=== PATIENT | female | born 1995 | race Caucasian/White ===

== ENCOUNTER 2019-06-01 07:25 | Day surgery (SDC) | payer MEDICAID, SELFPAY ==
--- NOTE | 2019-05-31 09:00 | POC_PTH ---
PATIENT: COBY POWERS LOC: [facility] – [place] U#:[id number] AGE/SX: 23/F ROOM: RE06/01/[address]: Dr. Jessica Pierson MD : 1995 BED: DIS: 06/01/2019 SPEC #: [id number] RECD: 06/01/19 10:56 STATUS: REGAN RESarahy #: [id number] KAY: 05/31/19 09:[address]: Jessica Pierson DEPT: SURGICAL PATHOLOGY RECD BY: Brad Pinedo ENTERED: 06/01/19 11:04 SP TYPE: PROD CONC OTHR DR: No Primary Care Phys Tissues: Product of conception, NOS Procedures: Surgery Specimen Level IV HEADER OPERATION: Suction dilation and curettage PRE-OP DIAGNOSIS: Missed TISSUE SUBMITTED: Products of conception (eight weeks twin gestation) MICROSCOPIC DIAGNOSIS Endometrium, curettage: Chorionic villi, decidualized stroma and trophoblastic cells consistent with products of conception. AM:genaro 06/04/19 MICROSCOPIC DESCRIPTION Slides are reviewed. GROSS DESCRIPTION Received in fixative is one container labeled with the patient's name and designated products of conception. The specimen consists of multiple pieces of pink-mercado soft tissue that in aggregate measure 7?x 7 x 2 cm. No tissue is identified. Cardiovascular Invasive Specialist tissue is submitted in two cassettes. / SJ:genaro 06/01/19 TC:5 CPT: 24285
[2019-06-01 08:12] VITALS: BP 127/70; PULSE 99; RESP 16; TEMP 37.4; O2SAT 100; BMI 34.4
[2019-06-01 08:28] LABS: Hematocrit 40.3 % (37-47); Hemoglobin 13.4 g/dL (12.0-15.0); Mean Corp Hgb Conc 33.3 g/dL (32-36); Mean Corpuscular Hgb 26.4 pg (27.0-32.0); Mean Corpuscular Volume 79.5 fL (81-99); Mean Platelet Vol. 9.8 fl (6.2-12.0); Platelet Count 248 K/mm3 (150-450); RBC Distribution Width SD 36.6 fl (35.1-43.9); Red Blood Count 5.07 M/mm3 (4.2-5.4); White Blood Count 9.5 K/mm3 (4.4-11.0)
[2019-06-01] MEDS: Ketorolac 30 MG/ML Syringe IV (08:32)
[2019-06-01] MEDS: Doxycycline 100 MG CAPSULE PO (08:32)
--- NOTE | 2019-06-01 08:46 | PCM.HP.BLA ---
History and Physical Date of Admission: 06/01/19 22-year-old 2 para 1 at 8 weeks and 4 days by last menstrual period presents for suction dilation and curettage due to missed of twin gestation. [place]-rump length yesterday in the office were both consistent with 8-9 week size embryos. cardiac activity was not able to be visualized nor detected with Doppler color flow. Patient had no vaginal bleeding, leaking of fluid. She's had some nausea and vomiting of . The was planned. Past medical history significant for depression, gestational diabetes and gestational hypertension with previous . Past surgical history significant for section and a heart catheterization Social history: She denies any drug, tobacco or alcohol use First was a , failed induction. Current is first trimester missed twin . Appears dichorionic amniotic diamniotic. 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 Vagina shows normal physiological discharge. Cervix is closed, smooth, nonfriable. Transvaginal ultrasound was performed which revealed to gestational sacs, 2 yolk sacs, and 2 embryos that were 8-9 weeks' size without cardiac activity. assessment and plan: 8 week 4 day dichorionic diamniotic twin gestation missed . Risks benefits and alternatives to various options were discussed with patient, her questions were answered her satisfaction she desires to proceed with a suction dilation and curettage. Consent was signed.
--- NOTE | 2019-06-01 10:11 | OP.PCM_ITS ---
Report of Operation Date of Procedure: 06/01/19 Pre-Operative Diagnosis: 8-week missed , dichorionic diamniotic twin gestation Post-Operative Diagnosis: Same Surgery/Procedure Performed:: Suction dilation and curettage Description of Surgical Findings:: Normal-appearing cervix and vagina. elastic assembler: None Type of Anesthesia:: MAC/Supplemental/Local Anesthesiologist: Walt Chapman Special Medications: None Specimen's removed: POCs Drains: None Estimated Blood Loss (mL): 20 Fluids Replaced: 700 Description of Procedure: The patient was taken to the operating room where she was prepped and draped in a dorsolithotomy position. A bimanual examination was done and confirmed the uterus to be 10 weeks size and position. A weighted speculum was placed in the vagina and the anterior lip of the cervix was grasped with a single-tooth tenaculum. The cervix was dilated serially. A 8 mm suction curette was placed to the uterine fundus and the suction was created. Several passes were made to remove clots and products of conception. When minimal tissue was returning a gentle sharp curettage was then done of the uterine cavity. The uterine cry was appreciated and another gentle pass was made with the suction curette. At this point there is no active bleeding from the uterus and minimal blood and no further products of conception were removed. The instruments removed from the cervix and the cervix was observed and no active bleeding was identified. The tenaculum was removed off the cervix and hemostasis of the tenaculum site was assured. Made of the instruments removed from the vagina and the vaginal sweep was completed by me. Sponge and needle counts were correct. The patient was taken to the recovery room in stable condition. Findings: 10 week size uterus, normal cervix and vagina. Specimen: Products of conception Grafts/Implants Used: none - Complications none - Admit VTE Documentation VTE Present on Admission: No VTE Mechan Device Prophylaxis: SCD's VTE Pharm Prophylaxis ordered?: No Reason prophylaxis not ordered:: Procedure Not Indicated
--- NOTE | 2019-06-01 10:11 | DCINST_ITS ---
Discharge Diet: No Restrictions Discharge Activity: Return to Normal Activity, May Shower, May Take a Tub Bath - in 2 weeks. May resume sexual activity in: 2 weeks Call your doctor if your incision/area has: Sudden Increased Bleeding, Foul Smelling Discharge Call your doctor if you observe: Fever of 101 or Higher, Inability to urinate, Inability to have a bowel movement, Using more than one pad per hour Allergies/Adverse Reactions: Allergies bee venom protein (honey bee) Allergy (Verified 06/01/19 08:07) Hives Medications to take at Discharge Vits [Prenatabs FA] 1 tablet PO DAILY 08/31/17 Naproxen [Naprosyn] 500 mg PO Q8 PRN 06/01/19 Primary Care Physician: Care Physician,No Primary [Primary Care Provider] - Test Results: Test results from this visit will be discussed in further detail at your follow- up appointment, if applicable. Please Follow Up With: Jessica Pierson MD - [phone] When: 3-4 weeks or as needed
[2019-06-01 10:15] VITALS: BP 103/51; BP 127/70; PULSE 92; RESP 16; TEMP 36.2; O2SAT 99
[2019-06-01 10:20] VITALS: BP 103/68; BP 127/70; PULSE 91; RESP 16; O2SAT 100
[2019-06-01 10:25] VITALS: BP 103/52; BP 127/70; PULSE 88; RESP 16; O2SAT 100
[2019-06-01 10:32] VITALS: BP 127/70; BP 92/75; PULSE 84; RESP 16; TEMP 36.2; O2SAT 100
[2019-06-01 11:44] VITALS: BP 108/71; BP 127/70; PULSE 93; RESP 18; TEMP 36.4; O2SAT 100
== END 2019-06-01 11:49 | disposition home or self-care (01) ==
LOC: SDC 07:30 → AC 07:30
PROVIDERS: Referring Provider Obstetrics & Gynecology; Visit Provider Obstetrics & Gynecology
PROC: (CPT 59820; principal; 2019-06-01 08:45)
DX: O02.1 Missed abortion (principal); O30.049 Twin pregnancy, dichorionic/diamniotic, unspecified trimester; Z3A.08 8 weeks gestation of pregnancy
CPT/HCPCS: 59820; 36415; 85027; 86850; 86900; 88305; J7120; J2405

== ENCOUNTER 2019-10-01 06:13 | Day surgery (SDC) | payer MEDICAID, SELFPAY ==
--- NOTE | 2019-09-29 13:32 | PCM.HP.BLA ---
History and Physical Date of Admission: 10/01/19 Pre-Op History and Physical ? HPI: The patient is a 23 year old female presenting for pre-operative visit. She is scheduled for?Suction D&C, for?missed , 12 weeks (8 week size) on?10/01/19. ??Procedure discussed along with risks, benefits and complications. ?Other alternatives discussed for management. Consent form signed??Yes.? PAST MEDICAL HISTORY PAST MEDICAL HISTORY Diagnosis Date ? Anemia ? ? Gestational diabetes mellitus (GDM), antepartum 07/05/2017 ? PDA (patent ductus arteriosus) ? ? repaired ? depression ? ? hemorrhage ? ? Screening for cystic fibrosis 03/07/2017 ? negative screen for CF carrier ? ? PAST SURGICAL HISTORY PAST SURGICAL HISTORY Procedure Laterality Date ? DELIVERY ONLY ? 09/02/2017 ? D&C ? ? ? HEART CATHETERIZATION ? 10/2012 ? ? CURRENT MEDICATIONS Current Outpatient Medications Medication Sig Dispense Refill ? ONE DAILY [phone] mg-mcg-mg cmpk ? ? 1 ? Clindamycin Phosphate (CLEOCIN T) 1 % lotion Apply ?to affected area twice daily. ? ? ? PNV with Ca,No.67-Hygm-WI-DHA (WOMEN'S PLUS DHA) 28 mg-975 mcg- 200 mg cmpk Take 1 tablet by mouth once daily. (Patient not taking: Reported on 09/07/2019 ) 30 Each 12 ? No current facility-administered medications for this visit.? ? ALLERGIES:?Bee Sting ? PERSONAL HISTORY:? SOCIAL HISTORY Social History ? Tobacco Use ? Smoking status: Never Smoker ? Smokeless tobacco: Never Used Substance Use Topics ? Alcohol use: No ? Drug use: No ? FAMILY HISTORY:? FAMILY HISTORY FAMILY HISTORY Problem Relation Age of Onset ? other (Interstital cystitis) Mother ? ? other (Fibermyalgia) Mother ? ? No Known Problems Father ? ? No Known Problems Sister ? ? No Known Problems Brother ? ? Asthma Maternal Grandmother ? ? Breast Cancer Maternal Grandmother ? ? Hypertension Maternal Grandmother ? ? Hyperlipidemia Maternal Grandmother ? ? Heart Maternal Grandfather ? ? Hyperlipidemia Maternal Grandfather ? ? Hypertension Maternal Grandfather ? ? Cancer Paternal Grandmother ?bladder ? Dementia Paternal Grandfather ? ? No Known Problems Sister ? ? No Known Problems Sister ? ? other (Cyst on pituitary gland) Brother ? ? No Known Problems Son ? Review of Systems: GENERAL: Negative for: Fever or Chills HEENT: Negative for: Headache, Impaired Vision, Ringing in Ears, Nosebleeds NECK: Negative for: Swelling, Pain, Stiffness RESPIRATORY: ?Negative for: Cough, Shortness of breath, Wheezing GASTROINTESTINAL: Negative for: Heartburn, Constipation, Diarrhea, Blood in stool, Vomiting MUSCULOSKELETAL: ?Negative for: Muscle or joint pain, stiffness, Joint swelling NEUROLOGIC/PSYCHIATRIC: some anxiety SKIN: Negative for: Rash, Itching GENITOURINARY: Negative for: vaginal itching, vaginal discharge, hematuria or dysuria ? Physical exam: ? GENERAL: ?female in no apparent distress DERMATOLOGY: Normal, without lesions, non-icteric and non-hirsute NECK: Supple, full range of motion, no adenopathy and thyroid normal CHEST: Normal inspiratory effort BREAST: soft, non-tender, symmetric, no dominant mass, normal nipple-areolar complex, no lymphadenopathy and no nipple discharge ABDOMEN: soft, non-tender and no masses NEURO: alert and oriented x3,exam grossly non-focal ? IMPRESSION:?12 right , spontaneous missed ? PLAN:???The risks/benefits/alternatives and personal involved for the planned?suction D&C?were reviewed with the patient. Her questions were answered to her satisfaction and she desires to proceed. ?Consent was signed. ?I reviewed with her postop instructions and expectations. ? ? I have reviewed and updated past medical and surgical history, medications and allergies. This history and physical was completed in my office on 09/27/2019.? I have re-examined the patient. There are no clinical changes since date of exam
[2019-10-01 06:40] LABS: Hematocrit 40.1 % (37-47); Hemoglobin 13.3 g/dL (12.0-15.0); Mean Corp Hgb Conc 33.2 g/dL (32-36); Mean Corpuscular Volume 81.3 fL (81-99); Mean Platelet Vol. 9.2 fl (6.2-12.0); Platelet Count 210 K/mm3 (150-450); RBC Distribution Width CV 12.5 % (11.6-14.6); RBC Distribution Width SD 36.8 fl (35.1-43.9); Red Blood Count 4.93 M/mm3 (4.2-5.4); White Blood Count 8.2 K/mm3 (4.4-11.0)
[2019-10-01 06:52] VITALS: BP 127/80; PULSE 86; RESP 16; TEMP 36.9; O2SAT 100; BMI 35.1
[2019-10-01] MEDS: Acetaminophen 500 MG Tablet 1000 MG PO (07:01)
[2019-10-01] MEDS: Doxycycline 100 MG CAPSULE PO (07:02)
[2019-10-01] MEDS: Ketorolac 30 MG/ML Syringe IV (07:04)
[2019-10-01] MEDS: Lactated Ringers 1,000 ML 100 ML IV (07:04)
--- NOTE | 2019-10-01 07:30 | POC_PTH ---
PATIENT: COBY POWERS LOC: [facility] [place] U#:[id number] AGE/SX: 23/F ROOM: RE10/01/[address]: Dr. Jessica Pierson MD : 1995 BED: DIS: 10/01/2019 SPEC #: [id number] RECD: 10/01/19 08:22 STATUS: REGAN RESarahy #: [id number] KAY: 10/01/19 07:[address]: Jessica Pierson DEPT: SURGICAL PATHOLOGY RECD BY: Brad Pinedo ENTERED: 10/01/19 11:10 SP TYPE: PROD CONC OTHR DR: No Primary Care Phys Tissues: Product of conception, NOS Procedures: Surgery Specimen Level IV Comments: Anora test ordered after specimen was received in the lab. Formalin added, unable to perform Anora testing. 10/03/19 HEADER OPERATION: Dilation and curettage, suction PRE-OP DIAGNOSIS: Twelve weeks , spontaneous missed TISSUE SUBMITTED: Products of conception MICROSCOPIC DIAGNOSIS Products of conception: Immature placental tissue, decidua and gestational endometrium (products of conception). MARTIN:genaro 10/03/19 COMMENT Please make reference to previous specimen ([id number]) endometrium, curettage with diagnosis of chorionic villi, decidualized stroma and trophoblastic ells consistent with products of conception. MICROSCOPIC DESCRIPTION Slides are reviewed. GROSS DESCRIPTION Received in fixative is one container labeled with the patient's name and designated products of conception. The specimen consists of multiple fragments of hemorrhagic soft tissue that in aggregate measure 7 x 8 x 3 cm. tissue is not identified. Circus Agent tissue is submitted in two cassettes. / Minal 10/01/19 TC:5 CPT: 41424
--- NOTE | 2019-10-01 08:02 | DCINST_ITS ---
Discharge Diet: No Restrictions Discharge Activity: Return to Normal Activity, May Shower, May Take a Tub Bath - in 2 weeks. Return to work on:: 10/05/19 May shower in (days): 1 May resume sexual activity in: 2 weeks Call your doctor if your incision/area has: Continuous Slow Oozing, Sudden Increased Bleeding, Increased Redness, Foul Smelling Discharge Call your doctor if you observe: Fever of 101 or Higher, Inability to have a bowel movement, Using more than one pad per hour - for 2 hrs in a row Allergies/Adverse Reactions: Allergies bee venom protein (honey bee) Allergy (Verified 10/01/19 06:49) Hives Medications to take at Discharge Ibuprofen [Motrin] 600 mg PO Q6H PRN #20 tab 10/01/19 The following prescriptions were given: Ibuprofen [Motrin] 600 mg PO Q6H PRN #20 tab PRN Reason: Pain Transmission Status: Pending to [id number] Orders to be completed after discharge: Type & Screen Time Frame: 10/01/19, Facility: [facility], Location: Laboratory Primary Care Physician: Care Physician,No Primary [Primary Care Provider] - Test Results: Test results from this visit will be discussed in further detail at your follow- up appointment, if applicable. Please Follow Up With: Jessica Pierson MD - [phone] When: 2-4 weeks or as needed
--- NOTE | 2019-10-01 08:03 | PCM.OPRPT ---
Report of Operation Date of Procedure: 10/01/19 Pre-Operative Diagnosis: missed , 12 weeks gestation Post-Operative Diagnosis: same Surgery/Procedure Performed:: suction D&C Description of Surgical Findings:: normal cervix and vagina, products of conception consulting software engineer: Timothy Medellin [email or web address] Type of Anesthesia:: MAC/Supplemental/Local Anesthesiologist: Tyesha Pike Special Medications: none Specimen's removed: products of conception, sent for Anora testing Drains: none Estimated Blood Loss (mL): 20 Description of Procedure: The patient was taken to the operating room where she was prepped and draped in a dorsolithotomy position. A bimanual examination was done and confirmed the uterus to be 8 weeks size and anteverted. A weighted speculum was placed in the vagina and the anterior lip of the cervix was grasped with a single-tooth tenaculum. The cervix was dilated serially. A 7 mm suction curette was placed to the uterine fundus and the suction was created. Several passes were made to remove clots and products of conception. When minimal tissue was returning a gentle sharp curettage was then done of the uterine cavity. The uterine cry was appreciated and another gentle pass was made with the suction curette. At this point there is no active bleeding from the uterus and minimal blood and no further products of conception were removed. The instruments removed from the cervix and the cervix was observed and no active bleeding was identified. The tenaculum was removed off the cervix and hemostasis of the tenaculum site was assured. Made of the instruments removed from the vagina and the vaginal sweep was completed by me. Sponge and needle counts were correct. The patient was taken to the recovery room in stable condition. Findings: 8 week size uterus, normal cervix and vagina. Specimen: Products of conception Grafts/Implants Used: none - Complications none - Admit VTE Documentation VTE Present on Admission: No VTE Mechan Device Prophylaxis: SCD's VTE Pharm Prophylaxis ordered?: No Reason prophylaxis not ordered:: Treatment Not Indicated
[2019-10-01 08:05] VITALS: BP 102/67; BP 127/80; PULSE 115; RESP 16; TEMP 36.4; O2SAT 100
[2019-10-01 08:10] VITALS: BP 105/53; BP 127/80; PULSE 99; RESP 16; O2SAT 100
[2019-10-01 08:20] VITALS: BP 106/53; BP 127/80; PULSE 95; RESP 16; O2SAT 99
[2019-10-01 08:25] VITALS: BP 109/62; BP 127/80; PULSE 76; RESP 16; TEMP 36.4; O2SAT 100
[2019-10-01 08:57] VITALS: BP 127/80
== END 2019-10-01 09:15 | disposition home or self-care (01) ==
LOC: SDC 06:14 → AC 06:15
PROVIDERS: Referring Provider Obstetrics & Gynecology; Visit Provider Obstetrics & Gynecology
PROC: (CPT 59820; principal; 2019-10-01 07:15)
DX: O02.1 Missed abortion (principal); Z86.2 Personal history of diseases of the blood and blood-forming organs and certain disorders involving the immune mechanism
CPT/HCPCS: 59820; 36415; 85027; 86850; 86900; 86901; 88305; J7120; J2405

== ENCOUNTER 2022-02-17 22:10 | Outpatient (CLI) | payer MEDICAID, SELFPAY ==
[2022-02-17 22:24] VITALS: BP 129/64; PULSE 106; TEMP 36.9
[2022-02-17 22:54] VITALS: BMI 41.1
--- NOTE | 2022-02-17 23:26 | OB.TRI.NOTE ---
HPI - General HPI Narrative COBY POWERS, is a 26 F at 34.2 weeks gestation who presents to triage with decreased movement. Patient stated she felt movement around noon today and has felt only 3 movements since. Denies any cramps or contractions, loss of fluid or vaginal bleeding. Maternal Data Information SOURAV Calculator Estimated Delivery Date Method Current WG Current Estimate 03/29/22 Manual 34w 2d PFSH PFSH Home Medications aspirin 81 mg PO DAILY 02/17/22 [History Last Taken 02/16/22 23:00] cephalexin [Keflex] 500 mg PO Q6H 02/17/22 [History Last Taken 02/17/22 18:00] escitalopram oxalate [Lexapro] 15 mg PO DAILY 02/17/22 [History Last Taken 02/16/22 23:00] pjlfaerp-agw-Eo-FA [] tab PO 02/17/22 [History Last Taken Unknown] Allergy/AdvReac Type Severity Reaction Status Date / Time bee venom protein (honey bee) Allergy Hives Verified 02/17/22 22:55 Social History Smoking Status: Never smoker History Elective abortions Hx Para 0 Spontaneous abortions Hx # Term Pregnancies Ectopic pregnancies Hx # Pregnancies Multiple births # of living children ROS Eyes Eyes: Denies blurry vision Cardiovascular Cardiovascular: Reports none; Denies chest pain at rest, chest pain with activity or dizziness Respiratory/Chest Respiratory/Chest: Denies cough or dyspnea Gastrointestinal Gastrointestinal: Reports none and other; Denies diarrhea or vomiting Genitourinary Genitourinary: Denies dysuria Musculoskeletal Musculoskeletal: Reports none Integumentary Integumentary: Reports none; Denies rash Neurologic Neurologic: Denies dizziness, headache(s) or other visual disturbances Psychiatric Psychiatric: Reports none Physical Exam Const alert and no apparent distress General Appearance: cooperative Orientation / Consciousness: awake Exam Limitations: no limitations HEENT normocephalic Eyes General Eye: normal appearance of both eyes Neck full ROM Chest inspection of chest normal Resp normal respiratory effort and normal air movement Effort and Inspection: symmetric chest movement Auscultation: clear to auscultation bilaterally Cardio regular rate GI soft to palpation, non-tender and non-distended Inspection: and other Back/Spine normal ROM Extremity full ROM, normal capillary refill and no calf tenderness Skin no rashes or lesions noted Neuro oriented x3 and CN's II-XII intact bilaterally Psych mental status grossly normal NST FHR Rate Baby A Baseline: 145 Variability:: Moderate Accelerations:: 15 x 15 Decelerations:: None NST Reactive:: Yes FHR Category:: Category I Uterine Activity:: None Assessment & Plan (1) 34 weeks gestation of : (2) Decreased movement: QUALIFIERS: Fetus number: single or unspecified fetus Trimester: third trimester Qualified Code(s): O36.8130 - Decreased movements, third trimester, not applicable or unspecified (3) Gestational diabetes: QUALIFIERS: Gestational diabetes mellitus control: diet-controlled Trimester: third trimester Qualified Code(s): O24.410 - Gestational diabetes mellitus in , diet controlled (4) Previous delivery affecting : (5) Desires (vaginal after ) trial: PLAN: Cat. 1 tracing- Patient has felt movement since arrival to unit FHT difficult to trace due to movement D/C home with follow up in office Kick counts and PTL precautions reviewed Dr. Reyes updated
== END 2022-02-18 00:15 | disposition home or self-care (01) ==
LOC: WPOUT 22:14 → WP 22:14
PROVIDERS: Visit Provider Advanced Practice Midwife
DX: O36.8130 Decreased fetal movements, third trimester, not applicable or unspecified (principal); O24.410 Gestational diabetes mellitus in pregnancy, diet controlled; Z3A.34 34 weeks gestation of pregnancy; O34.219 Maternal care for unspecified type scar from previous cesarean delivery
CPT/HCPCS: 59025; 59050; 99218; G0378

== ENCOUNTER 2022-03-26 06:30 | Inpatient (IN) | payer MEDICAID, SELFPAY ==
--- NOTE | 2022-03-17 10:17 | HP.PCM_ITS ---
History and Physical Date of Admission: 03/26/22 HPI: The patient is a 26 year old female presenting for pre-operative visit. She is scheduled for , for previous c/s on 03/26/22. Procedure discussed along with risks, benefits and complications. Other alternatives discussed for management. Consent form signed? Yes. PAST MEDICAL HISTORY PAST SURGICAL HISTORY CURRENT MEDICATIONS ALLERGIES: Bee Sting PERSONAL HISTORY: SOCIAL HISTORY FAMILY HISTORY: FAMILY HISTORY REVIEW OF SYMPTOMS: GENERAL: denies fevers or chills ENDOCRINOLOGY: has not been on steroids Cardiology : denies palpitations or chest pain Respiratory: denies SOB or cough Hematology: denies history of prolonged bleeding or easy bruising or VTE Allergy: Denies history of personal or family history of allergy to anesthesia PHYSICAL EXAMINATION: VITALS: Blood pressure 122/74, weight 217 lb (98.4 kg), last menstrual period 06/22/2021. GENERAL: The patient is well nourished, well hydrated in no acute distress. , The patient is oriented to time, place, and person. NECK: Supple. No lynphadenopathy, normal thyroid, no thyromegaly. LUNGS: Clear to auscultation bilaterally. no wheezes, rhonchi or rales HEART: Regular rate and rhythm, Normal heart sounds and No murmurs or gallops GENITALIA: Normal external genitalia, Urethral meatus normal, Bladder nontender, normal vagina and normal vaginal tone, normal cervix, normal uterus, size and consistency, normal adnexa without masses or tenderness and perineum WNL WET PREP: Not indicated IMPRESSION: Estimated Date of Delivery: 03/29/22 @ 39 + weeks w/ gdma1 for repeat c/s on 03/26/22. PLAN: The risks/benefits/alternatives and personal involved for the planned c- section were reviewed with the patient. Her questions were answered to her satisfaction and she desires to proceed. Consent was signed. I reviewed with her postop instructions and expectations. I have reviewed and updated past medical and surgical history, medications and allergies Assessment & Plan Assessment/Plan (1) Previous delivery affecting : (2) 39 weeks gestation of : (3) Gestational diabetes mellitus, class A1: (4) Maternal obesity syndrome in third trimester: (5) BMI 40.0-44.9, adult:
[2022-03-26] VITALS (17 sets, daily range): BP systolic 96–123; BP diastolic 44–90; PULSE 77–109; RESP 16–18; TEMP 36.2–37.7; O2SAT 94–100; BMI 41.0
[2022-03-26] MEDS: Lactated Ringers 1,000 ML 999 ML IV (06:45)
[2022-03-26] MEDS: Acetaminophen 500 MG Tablet 1000 MG PO ×3 (06:55→19:04)
[2022-03-26] MEDS: Sodium Citrate/Citric Acid 30 ML UDC PO (06:55)
[2022-03-26 06:57] LABS: Absolute Lymphocyte Count 3.78 X10^3/uL (0.83-4.51); Absolute Neutrophil Count 9.9 X10^3/uL (2.0-7.7); Basophil# 0.06 X10^3/uL; Basophil% 0.4 % (0-1); Eosinophil# 0.15 X10^3/uL; Hematocrit 32.6 % (37-47); Hemoglobin 10.3 g/dL (12.0-15.0); Lymphocyte # 3.78 X10^3/ul (0.83-4.51); Lymphocyte % 24.8 % (19-41); Mean Corp Hgb Conc 31.6 g/dL (32-36); Mean Corpuscular Hgb 24.4 pg (27.0-32.0); Mean Corpuscular Volume 77.3 fL (81-99); Mean Platelet Vol. 10.1 fl (6.2-12.0); Monocyte# 1.23 X10^3/uL; Monocyte% 8.1 % (0-10); NRBC Flagged by Analyzer 0 % (0-5); Neutrophil % 64.9 % (47-70); Platelet Count 279 K/mm3 (150-450); RBC Distribution Width CV 13.7 % (11.6-14.6); RBC Distribution Width SD 38.5 fl (35.1-43.9); Red Blood Count 4.22 M/mm3 (4.2-5.4); White Blood Count 15.2 K/mm3 (4.4-11.0)
[2022-03-26 07:05] LABS: Bedside Glucose 108 mg/dL (74-106)
[2022-03-26] MEDS: Cefazolin 2 GM in 0.9% Normal Saline 100 ML IV (07:33)
--- NOTE | 2022-03-26 08:29 | OP.PCM_ITS ---
Assessment & Plan (1) Previous delivery affecting : (2) Gestational diabetes: QUALIFIERS: Gestational diabetes mellitus control: diet-controlled Trimester: third trimester Qualified Code(s): O24.410 - Gestational diabetes mellitus in , diet controlled (3) 39 weeks gestation of : (4) Gestational diabetes mellitus, class A1: (5) Maternal obesity syndrome in third trimester: (6) Delivery by section: Maternal Data Information SOURAV Calculator Estimated Delivery Date Method Current WG Current Estimate 03/29/22 Manual 39w 4d Details Operative Information Date of Procedure: 03/26/22 Pre-Operative Diagnosis: GDMA1, 39 weeks, previous cs, obesity in Post-Operative Diagnosis: same, live male Indications for : Repeat Elective Classification: Scheduled Procedure 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 She was then placed in the supine position. She was prepped and draped in the normal sterile fashion. Anesthesia was found to be adequate. At this time a Pfannenstiel skin incision was made with a knife was carried down to the underlying layer of the fascia. The fascial incision was then extended laterally using curved Preciado scissor. Tensions was then turned to the superior aspect of the fascial edge was grasped with 2 straight Christi clamps tented up and the rectus muscle dissected off sharply using curved Preciado scissor. Attention was then turned to the inferior aspect where again Christi clamps were placed in the rectus muscles were tented up and the fascia was dissected off sharply using the curved Preciado scissor. Rectus muscles were then in the midline sharply and peritoneum was entered sharply with Metzenbaum. Gentle opposing traction was placed. At this time the vesicouterine peritoneum was identified. Scalpel was used to make a uterine incision in a low transverse fashion. The uterus was then entered bluntly gentle opposing traction was placed to extend this incision. Membranes were ruptured light meconium. 's head was brought to the uterine incision was delivered atraumatically. 2 loose nuchal cords- reduced, mouth and nose suctioned. delayed cord clamping performed as infant was vigorous. Cord was clamped and cut was handed to the waiting nursery team. The Placenta was removed from the uterus. The uterus was then removed from the abdominal cavity. The uterus was cleared of all clots and debris using a lap. At this time the uterine incision was reapproximated using #1 Vicryl in a running locked fashion. Hemostasis was appreciated. Posterior cul-de-sac was then cleared of all clots and debris. Possible endometriosis on posterior left uterus- keith placed as it was slightly oozing. tubes and ovaries appear normal. Uterus was placed back in the abdominal cavity. Gutters were cleared of all clots and debris. Uterine incision was reevaluated and noted to be of excellent hemostasis. Keith placed. At this time the peritoneum was grasped with Kellys reapproximated using #2 Vicryl suture in a running fashion. muscle evaluated- bovie used for any oozing- keith placed over rectus. Fascia was then reapproximated using #1 Vicryl in a running fashion. Subcu layer was reapproximated with #2 0 plain gut suture in an interrupted fashion. Subcu l umesh was closed using 4-0 Monocryl in a subcu fashion. Dry sterile dressing was applied. Instrument lap needle count correct ?2. Anticipated normal postoperative course. Presentation: Positive for Vertex Amniotic Membrane Rupture Type: Artificial Amniotic Fluid Description: Lightly stained meconium Placental Delivery Description: Spontaneous Placenta Disposition: [facility] Cord Vessel Description: 3 Vessels Cord Entanglement: Around neck x 2, loose Nuchal Cord Compression: Without compression A Gender: Male (1 minute): 8 (5 minute): 9 Delayed Cord Clamping: Yes Complications Risks of Surgery Discussed w/Patient: Bleeding, Anesthesia Risks, Infection and Injury to surrounding structure(s) including bowel and bladder Complications: none
[2022-03-26] MEDS: Oxytocin 30 units/NS 500 ml 30 UNITS/500 ML IV.SOLN 167 UNITS IV (09:05)
[2022-03-26] MEDS: Ketorolac 30 MG/ML Syringe IV ×2 (09:43→15:45)
[2022-03-26 11:06] LABS: Bedside Glucose 91 mg/dL (74-106)
--- NOTE | 2022-03-26 11:09 | NURSING ---
Report received from Stefania GARCIA, taking over pt and care at this time.
[2022-03-26] MEDS: Senna/Docusate Sodium 1 Tablet PO (13:25)
[2022-03-26] MEDS: Lactated Ringers 1,000 ML 100 ML IV (13:25)
--- NOTE | 2022-03-26 17:00 | NURSING ---
x1 small quarter sized clot noted with assessment.
[2022-03-26] MEDS: Enoxaparin 40 MG/0.4 ML Syringe SC (20:40)
[2022-03-26] MEDS: Escitalopram Oxalate 10 MG Tablet 15 MG PO (21:54)
[2022-03-26] MEDS: Ibuprofen 600 MG Tablet PO (23:24)
[2022-03-27 00:09] VITALS: BP 119/48; PULSE 77; RESP 16; TEMP 36.6; O2SAT 96
[2022-03-27] MEDS: Acetaminophen 500 MG Tablet 1000 MG PO ×3 (01:48→16:21)
[2022-03-27 05:03] VITALS: BP 132/67; PULSE 83; RESP 16; TEMP 36.7; O2SAT 99
[2022-03-27] MEDS: Ibuprofen 600 MG Tablet PO ×2 (05:05→14:38)
[2022-03-27 05:25] LABS: Bedside Glucose 95 mg/dL (74-106)
[2022-03-27 05:35] LABS: Hematocrit 29.6 % (37-47); Hemoglobin 9.3 g/dL (12.0-15.0); Mean Corp Hgb Conc 31.4 g/dL (32-36); Mean Corpuscular Hgb 24.6 pg (27.0-32.0); Mean Corpuscular Volume 78.3 fL (81-99); Mean Platelet Vol. 10.4 fl (6.2-12.0); Platelet Count 247 K/mm3 (150-450); RBC Distribution Width CV 13.8 % (11.6-14.6); RBC Distribution Width SD 39.2 fl (35.1-43.9); Red Blood Count 3.78 M/mm3 (4.2-5.4); White Blood Count 12.8 K/mm3 (4.4-11.0)
--- NOTE | 2022-03-27 07:06 | PCM.PN.OB ---
Subjective Subjective She is doing well. Pain is well controlled. Lochia normal. She denies chest pain, lightheadedness, dizziness, shortness of breath, leg pain. She desires discharge today. She is ambulating and voiding without difficulty. She is eating a regular diet without nausea or vomiting. Objective Data Objective Data Vital Signs: Vital Signs Temp Pulse Resp BP Pulse Ox 98.1 F 83 16 132/67 H 99 03/27/22 05:03 03/27/22 05:03 03/27/22 05:03 03/27/22 05:03 03/27/22 05:03 Oxygen Delivery Method Room Air Weight: 217 lb Body Mass Index (BMI) 41.0 Intake & Output: Intake and Output for Last 24 Hours 03/25/22 03/26/22 03/27/22 23:59 23:59 23:59 Intake Total 2617.53 / 2617.53 Output Total 800 / 800 800 / 800 Balance 1817.53 / 1817.53 -800 / -800 Lab / Micro Data Result Diagrams: 03/27/22 05:28 Labs: Laboratory Results - last 24 hr 03/26/22 06:45: Blood Type A POSITIVE, Antibody Screen NEGATIVE 03/26/22 10:18: POC Glucose 91 03/27/22 05:14: POC Glucose 95 03/27/22 05:28: WBC 12.8 H, RBC 3.78 L, Hgb 9.3 L, Hct 29.6 L, MCV 78.3 L, MCH 24.6 L, MCHC 31.4 L, RDW Std Deviation 39.2, RDW Coeff of Codi 13.8, Plt Count 247, MPV 10.4 Micro: Microbiology 03/26/22 06:45 Nasal Secretion SARS-CoV-2 Antigen (Rapid) - Final Physical Exam Const alert and no apparent distress General Appearance: comfortable HEENT normocephalic Assessment & Plan (1) Delivery by section: PLAN: She is postoperative day 1 from a repeat section. She is doing well. Vitals are stable. CBC reviewed. She desires discharge today. Reviewed discharge instructions. (2) Gestational diabetes: QUALIFIERS: Gestational diabetes mellitus control: diet-controlled Trimester: third trimester Qualified Code(s): O24.410 - Gestational diabetes mellitus in , diet controlled (3) BMI 40.0-44.9, adult:
--- NOTE | 2022-03-27 07:10 | PCM.DC ---
Discharge Instructions Diet Discharge Diet: No restrictions Activity Discharge Activity: May Drive (once you feel strong enough to slam on a brake or turn a steering wheel sharply) May resume sexual activity in: 6 weeks Ice area for (Minutes): 15 Weight Bearing Status: Weight bearing as tolerated Lifting Restrictions: Nothing heavier than baby Dressing / Incision Call your doctor if your incision/area has: Continuous Slow Oozing, Sudden Increased Bleeding, Increased Pain/ Swelling, Increased Redness, Foul Smelling Discharge and Swelling at the incision site Call your doctor if you observe: Fever of 101 or Higher, Coldness, Increased Pain, Numbness or Tingling, Change in Color, Inability to urinate, Inability to have a bowel movement, Using more than 1 pad per hour, Shortness of breath, Dizziness, Fainting spells, Swelling in the ankles, Chest pain, Increased palpitations (irregular heartbeat), Calf discomfort and Uncontrolled pain Suture Line Care: Avoid Pulling/Pushing and Avoid Pinching/Bending Remove Dressing in: 5 days Cleanse incision/area with: Soap & Water Follow Up Care When: 1 week incision check 6 weeks visit Test Results: Test results from this visit will be discussed in further detail at your follow-up appointment, if applicable. Discharge Plan Admission Admit Date/Time: 03/26/22 06:30 Primary Reason for Your Visit: Delivery Attending Provider: Peggy Mobley Primary Care Provider: Grazyna Hay Primary Discharge Orders/Prescriptions Prescriptions: New oxycodone-acetaminophen [Percocet] 5-325 mg tablet 1 tab PO Q6H PRN (Reason: pain) 7 Days Qty: 20 RF: 0 docusate sodium [Colace] 100 mg capsule 100 mg PO BID Qty: 60 RF: 0 ferrous sulfate 325 mg (65 mg iron) tablet 325 mg PO QODAY Qty: 30 RF: 0 Continued [id number] 1 mg Tablet 1 tab PO DAILY RF: 0 escitalopram oxalate [Lexapro] 10 mg Tablet 15 mg PO DAILY RF: 0 Discontinued aspirin 81 mg Tablet 81 mg PO DAILY RF: 0 Referrals / Follow Up: Care Physician,No Primary [Primary Care Provider] - Disposition Disposition (needs filled in before D/C Order can be placed): Home, Self Care
[2022-03-27 07:40] VITALS: BP 111/67; PULSE 82; RESP 16; TEMP 36.3; O2SAT 98
[2022-03-27] MEDS: Enoxaparin 40 MG/0.4 ML Syringe SC (09:46)
[2022-03-27] MEDS: Senna/Docusate Sodium 1 Tablet PO (09:46)
--- NOTE | 2022-03-27 11:03 | CM.UR ---
Social Work Labor and Delivery Unit Date/Time of referral: 03/26/22, 17:50 Referred by: Dr. Mobley Date/Time of intervention: 03/26/22, 10:30am Reason for referral: History of anxiety, depression, PPD History obtained from: MOB, FOB Household composition: CEE WOODWADR, 4.5 year old and now baby Akbar. MOB and FOB have been together for 8 years Parent/guardian status: MOB and FOB are guardians of both children Medical history: MOB: hx of depression, anxiety, PPD. Baby: Born 03/26/[birth year], 7:57am. Apgars 8 7 9 at 1 and 5 [address] 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 Educational status: Both parents finished high school Financial status: No concerns. MOB stays home with the children, FOB works two jobs supplies: They have all needed supplies including car seats, crib, bassinet, clothing, diapers, bottles if needed. MOB plans to breastfeed. Childcare/caregivers: MOB and FOB, MOB's sister helps. Transportation: They have 2 cars. Programs/agencies involved: none Legal issues/Children's Services: none Behavioral Health Issues: Substance use history: None for MOB or FOB. Mental Health: None for FOB. History of anxiety, depression, PPD for MOB. She states that the anxiety and depression were not diagnosed until she had PPD. She has been on Lexapro since that time and states it helps. She has not been in counseling but states has a list in her area from her insurance if needed. Family/Social Stressors: None Support Systems: MOB's family, she has 9 siblings. They did not identify FOB's family as being supportive. MOB states FOChetan has one sister who lives states away. Depression/Anxiety/Shaken Baby/Safe Sleeping/Help Me Grow: SW gave MOB and FOB information on all of these topics and reviewed the information with them. SW reviewed warning signs with MOB and FOB for depression and encourage MOB if having symptoms, to speak w/her OB and to seek counseling. MOB states understanding. SW also did point out to MOB and FOB [facility] 24 hour hotline if needed. Assessment: MOB and FOB spoke w/SW and answered all questions. Baby Akbar was sleeping in the bassinet next to them while SW was speaking w/them. No concerns at this time. Plan: Baby to go home w/MOB and FOB at discharge. HÉCTOR Bedolla
[2022-03-27 13:00] VITALS: BP 121/78; PULSE 102; RESP 16; TEMP 36.8; O2SAT 100
[2022-03-27 17:00] VITALS: BP 100/55; PULSE 98; RESP 16
--- NOTE | 2022-04-01 13:48 | NURSING ---
On follow up phone call mother doing well , states all her nurses were great. Saw Susy
== END 2022-03-27 17:59 | disposition home or self-care (01) | DRG 540 ==
PROVIDERS: Obstetrics & Gynecology; Admitting Provider Obstetrics & Gynecology; Visit Provider Obstetrics & Gynecology
PROC: (CPT 59514; principal; 2022-03-26 07:15)
DX: O34.219 Maternal care for unspecified type scar from previous cesarean delivery (principal); O24.420 Gestational diabetes mellitus in childbirth, diet controlled; N80.0 Endometriosis of uterus; O99.892 Other specified diseases and conditions complicating childbirth; O77.0 Labor and delivery complicated by meconium in amniotic fluid; O99.214 Obesity complicating childbirth; O69.81X0 Labor and delivery complicated by cord around neck, without compression, not applicable or unspecified; Z3A.39 39 weeks gestation of pregnancy; Z37.0 Single live birth
CPT/HCPCS: 59050; 82962; 85025; 85027; 86850; 86900; 86901; 87426; 99218; 99251; J7120; A4216; G0378; G0463; J2405